=== PATIENT | male | born 1975 | race Caucasian/White ===

== ENCOUNTER 2018-01-07 17:07 | Emergency (ER) | payer OTHER ==
[~2018-01-07] VITALS: Ht 182.9 cm; Wt 143.8 kg
[2018-01-07] MEDS ORDERED: KOMBIGLYZE XR1 EAC1 (18:04)
[2018-01-07] MEDS ORDERED: FOLIC ACID20 MG (18:05)
[2018-01-07] MEDS ORDERED: GLIPIZIDE5 MG (18:05)
[2018-01-07] MEDS ORDERED: INVOKANA300 MG (18:06)
[2018-01-07] MEDS ORDERED: COZAAR25 MG (18:07)
[2018-01-07] MEDS ORDERED: CRESTOR20 MG (18:07)
[2018-01-07] MEDS ORDERED: OMEGA 3 1,0001 EACH (18:07)
== END 2018-01-08 00:11 | disposition home or self-care (01) ==
LOC: ER 17:07
DX: S60.212A Contusion of left wrist, initial encounter (principal); S50.12XA Contusion of left forearm, initial encounter; W18.39XA Other fall on same level, initial encounter; Y93.89 Activity, other specified; Y92.89 Other specified places as the place of occurrence of the external cause; Y99.8 Other external cause status